=== PATIENT | female | born 1940 | race American Indian/Alaskan Native ===

== ENCOUNTER 2022-01-04 10:58 | Emergency (ER) | payer MEDICARE ==
[2022-01-04] MEDS ORDERED: ASPIRIN 81 MG TAB CHEW PO ONE (12:01)
--- NOTE | 2022-01-04 12:12 | Emergency Department Report ---
ED Chest Pain HPI - General Chief Complaint: Chest Pain Stated Complaint: CHEST PAIN Time Seen by Provider: 01/04/22 11:44 Source: EMS Mode of arrival: Stretcher Limitations: No Limitations - History of Present Illness Initial Comments: 81-year-old female brought in by EMS with chest pain who denied any chest pain or abdominal pain at this point. According to bedside nurse patient has history of schizo-affective disorder and likely dementia. Pt reports fullness after eating in the morning. She denies any chest pain or abdominal pain at this point. No other modifying or associated factors reported. - Related Data Home Medications Medication Instructions Recorded Confirmed Last Taken Sertraline [Zoloft] 100 mg PO QDAY 10/07/21 01/04/22 01/03/22 Atorvastatin [Lipitor] 40 mg PO QHS 10/10/21 01/04/22 01/03/22 Metoprolol Xl [Metoprolol 25 mg PO QDAY 10/10/21 01/04/22 01/03/22 SUCCINATE ER TAB] Previous Rx's Medication Instructions Recorded Last Taken Type Apixaban [Eliquis] 5 mg PO Q12HR #60 tablet 10/14/21 01/03/22 Rx Losartan [Cozaar] 25 mg PO QDAY #30 tablet 10/14/21 01/03/22 Rx amLODIPine 10 mg PO QDAY #30 tablet 10/14/21 01/03/22 Rx Allergies Allergy/AdvReac Type Severity Reaction Status Date / Time No Known Drug Allergies Allergy Unknown Verified 01/04/22 11:01 strawberry AdvReac Hives Verified 01/04/22 11:12 Heart Score - HEART Score History: Slightly suspicious EKG: Non-specific Age: > 65 Risk factors: No known risk factors Troponin: < normal limit HEART Score: 3 - EKG Read Time Time EKG Completed: 11:17 EKG Read Time: 11:25 - Critical Actions Critical Actions: 0-3 pts:0.9-1.7%risk of adverse cardiac event.Candidate for discharge ED Review of Systems ROS: Stated complaint: CHEST PAIN Other details as noted in HPI Comment: All other systems reviewed and negative Cardiovascular: chest pain ED Past Medical Hx - Past Medical History Hx Hypertension: Yes Hx Congestive Heart Failure: No Hx Diabetes: Yes Hx of Cancer: Yes (bilateral mastectomy) Hx Psychiatric Treatment: Yes (schizo) Hx Asthma: No Hx COPD: No Hx Dementia: Yes Additional medical history: lipidemia - Surgical History Past Surgical History?: Yes Hx Breast Surgery: Yes (bilateral) Additional Surgical History: This is obtained from old record review, not from the patient as she has altered mental status - Social History Smoking Status: Never Smoker - Medications Home Medications: Home Medications Medication Instructions Recorded Confirmed Last Taken Type Sertraline [Zoloft] 100 mg PO QDAY 10/07/21 01/04/22 01/03/22 History Atorvastatin [Lipitor] 40 mg PO QHS 10/10/21 01/04/22 01/03/22 History Metoprolol Xl [Metoprolol 25 mg PO QDAY 10/10/21 01/04/22 01/03/22 History SUCCINATE ER TAB] Apixaban [Eliquis] 5 mg PO Q12HR #60 tablet 10/14/21 01/04/22 01/03/22 Rx Losartan [Cozaar] 25 mg PO QDAY #30 tablet 10/14/21 01/04/22 01/03/22 Rx amLODIPine 10 mg PO QDAY #30 tablet 10/14/21 01/04/22 01/03/22 Rx ED Physical Exam - General Limitations: No Limitations General appearance: alert, in no apparent distress - Head Head exam: Present: normocephalic, normal inspection - Eye Eye exam: Present: normal appearance - ENT ENT exam: Present: normal exam, normal orophraynx - Neck Neck exam: Present: normal inspection, full ROM - Respiratory Respiratory exam: Present: normal lung sounds bilaterally. Absent: respiratory distress, wheezes, accessory muscle use - Cardiovascular Cardiovascular Exam: Present: regular rate, normal rhythm, normal heart sounds - GI/Abdominal GI/Abdominal exam: Present: soft. Absent: distended, tenderness - Extremities Exam Extremities exam: Present: normal inspection, normal capillary refill - Back Exam Back exam: Present: normal inspection - Neurological Exam Neurological exam: Present: alert, altered, other (oriented to self and place) - Psychiatric Psychiatric exam: Present: normal affect, normal mood - Skin Skin exam: Present: warm, intact, normal color ED Course Vital Signs 01/04/22 01/04/22 01/04/22 10:59 11:14 11:30 Temperature 99 F Pulse Rate 74 Respiratory Rate Blood Pressure Blood Pressure 120/67 [Left] O2 Sat by Pulse 98 99 100 Oximetry 01/04/22 01/04/22 01/04/22 11:31 12:01 12:31 Temperature Pulse Rate 71 73 73 Respiratory 13 10 L 18 Rate Blood Pressure 128/73 131/69 131/69 Blood Pressure [Left] O2 Sat by Pulse 99 98 100 Oximetry 01/04/22 01/04/22 13:01 13:31 Temperature Pulse Rate 78 71 Respiratory Rate Blood Pressure 126/71 126/71 Blood Pressure [Left] O2 Sat by Pulse 100 100 Oximetry - Reevaluation(s) Reevaluation #1: 01/04/22 12:14 pt initially sent in by EMS with chest pain which patient completely denied. She otherwise reports abdominal fullness after eaten. However considering that this patient is likely have dementia will go ahead and workup to rule out UT and KUB rule out constipation. Will continue to monitor. Reevaluation #2: 01/04/22 14:32 Patient's lab reviewed to be reassuring including cardiac enzymes and chemistry with no sign of infection. Chest x-ray and KUB only shows nonobstructive gas pattern with no acute findings. Considering that patient denies any chest pain or abdominal pain we will go ahead and discharge home with close contact with primary doctor. CHAVEZ score - Chavez Score Age > 65: (1) Yes Aspirin use within the Past 7 Days: (0) No 3 or more CAD Risk Factors: (1) Yes 2 or more Angina events in past 24 hrs: (0) No Known CAD with more than 50% Stenosis: (0) No Elevated Cardiac Markers: (0) No ST Deviation Greater than 0.5mm: (0) No (No ST changes on EKG but nonspecific T wave abnormality noted) CHAVEZ Score: 2 ED Medical Decision Making - Lab Data Result diagrams: 01/04/22 Unknown 01/04/22 Unknown Critical care attestation.: If time is entered above; I have spent that time in minutes in the direct care of this critically ill patient, excluding procedure time. ED Disposition Clinical Impression: Abdominal fullness, Non-cardiac chest pain Chest pain Qualifiers: Chest pain type: unspecified Qualified Code(s): R07.9 - Chest pain, unspecified Disposition: 01 HOME / SELF CARE / HOMELESS Is pt being admited?: No Does the pt Need Aspirin: No Condition: Stable Instructions: Nonspecific Chest Pain, Adult, Nonspecific Chest Pain, Adult, [id number] Additional Instructions: Please call and schedule follow-up with your primary doctor in the next 3 to 5 days for progress Increase your daily fluid to help your hydration Please do not hesitate to call or return to emergency room if your symptoms worsen Referrals: RICHARD BAKER MD [Primary Care Provider] - 3-5 Days Time of Disposition: 14:34
[2022-01-04 12:46] LABS: Basophils % (Auto) 0.6 % (0.0-1.8); Eosinophils # (Auto) 0.2 K/mm3 (0.0-0.4); Eosinophils % (Auto) 3.1 % (0.0-4.3); Hematocrit 32.9 % (30.3-42.9); Hemoglobin 10.9 gm/dl (10.1-14.3); Lymphocytes # (Auto) 1.7 K/mm3 (1.2-5.4); Lymphocytes % (Auto) 33.7 % (13.4-35.0); Mean Corpuscular HGB Conc 33 % (30-34); Mean Corpuscular Volume 96 fl (79-97); Monocytes # (Auto) 0.6 K/mm3 (0.0-0.8); Monocytes % (Auto) 12.6 % (0.0-7.3); Platelet Count 191 K/mm3 (140-440); Red Blood Count 3.43 M/mm3 (3.65-5.03); Red Cell Distribution Width 14.7 % (13.2-15.2)
[2022-01-04 12:55] LABS: INR 1.49 (0.87-1.13)
[2022-01-04 12:56] LABS: Partial Thromboplastin Time 36.6 Sec. (24.2-36.6)
[2022-01-04 13:03] LABS: Alanine Aminotransferase 11 units/L (7-56); Albumin 4.1 g/dL (3.9-5); BUN/Creatinine Ratio 29; Blood Urea Nitrogen 23 mg/dL (7-17); Calcium 9.3 mg/dL (8.4-10.2); Hemolysis Index 117
[2022-01-04 13:06] LABS: Bilirubin,Urine NEG (Negative); Blood,Urine NEG (Negative); Color,Urine Yellow (Yellow); Mucus,Urine FEW /HPF; Protein,Urine <15 mg/dL mg/dL (Negative); Urobilinogen,Urine < 2.0 mg/dL (<2.0)
--- NOTE | 2022-01-04 13:22 | XRay Report ---
XR chest 1V ap, XR abdomen 1V ap INDICATION / CLINICAL INFORMATION: chest pain. COMPARISON: 10/07/2021 FINDINGS: SUPPORT DEVICES: None. HEART / MEDIASTINUM: No significant abnormality. LUNGS / PLEURA: Left lower lobe rounded opacity which is thought to represent overlapping structures and the costochondral junction. Lungs are otherwise similar to prior exam from 10/07/2021 without acute airspace disease. Costophrenic sulci are sharp. No pneumothorax. ABDOMEN: Nonobstructive bowel gas pattern. No pneumoperitoneum. ADDITIONAL FINDINGS: No significant additional findings. IMPRESSION: 1. No acute findings. Opacity in the left lower lung zone is thought to represent overlapping structu res and the costochondral junction. 2. Nonobstructive bowel gas pattern. Signer Name: Shane Foster MD Signed: 01/04/2022 1:14 PM Workstation Name: [id number]
[2022-01-04 14:47] VITALS: BP 132/63
--- NOTE | 2022-01-05 10:48 | Electrocardiograph Report ---
[facility] Test Date: 2022-01-04 Test Time: 11:17:55 Pat Name: SUKHDEEP SHAH Department: Room: Gender: F [employer] Recruiter: POPPY BRAMBILAB: 1940 Requested By: SHERIE MALIK Order Number: [id number] Reading MD: Tres Romano Measurements Intervals [place] Rate: 72 P: 44 NV: 148 QRS: 6 QRSD: 77 T: 69 QT: 401 QTc: 440 Interpretive Statements Sinus rhythm Nonspecific T abnormalities, lateral leads Compared to ECG 10/10/2021 12:07:29 T-wave abnormality now present Atrial premature complex(es) no longer present Possible ischemia no longer present Electronically Signed On 01-05-2022 10:48:03 EDT by Tres Romano
== END 2022-01-04 17:13 | disposition home or self-care (01) ==
LOC: ED 10:58
DX: R14.0 Abdominal distension (gaseous) (principal); R07.9 Chest pain, unspecified; I10 Essential (primary) hypertension; E11.9 Type 2 diabetes mellitus without complications; Z91.018 Allergy to other foods
CPT/HCPCS: 36415; 71045; 74018; 80053; 81001; 83880; 84443; 84484; 85025; 85610; 85730; 93005; 99284

== ENCOUNTER 2022-01-12 13:51 | Inpatient (IN) | payer MEDICARE ==
[2022-01-12] MEDS ORDERED: HALOPERIDOL LACTATE 5 MG/1 ML INJ IM ONE (14:28)
[2022-01-12] MEDS ORDERED: SODIUM CHLORIDE 0.9% 1000 ML 1,000 ML IV ONE ×2 (14:29→15:58)
--- NOTE | 2022-01-12 14:32 | Emergency Department Report ---
<PAULA CORTEZ - Last Filed: 01/12/22 21:10> ED General Adult HPI - General Chief complaint: Medical Clearance Stated complaint: NOT EATING/TAKING MEDS Time Seen by Provider: 01/12/22 14:16 Source: EMS Mode of arrival: Stretcher Limitations: Altered Mental Status, Physical Limitation - History of Present Illness Initial comments: 81-year-old female the past medical history of dementia, pre-diabetes, hypertension, and schizophrenia presents to the hospital from personal snf for not taking meds and not eating. Patient is early oriented to self and not to year or place. She states that she has no intention of staying because she plans on flying out to [facility] even though she has not bought a plane ticket. Patient denies any pain and states she is not eating because she feels full with eating. As per medical record patient was here in January with complaints of chest pain and discharged after ED evaluation patient currently resides at a personal snf Patient's current medications include losartan 25 mg daily Eliquis 5 mg twice daily Sertraline 100 mg daily Metoprolol XL 25 mg daily Amlodipine 10 mg daily Atorvastatin 40 mg Severity scale (0 -10): 0 - Related Data Home Medications Medication Instructions Recorded Confirmed Last Taken Sertraline [Zoloft] 100 mg PO QDAY 10/07/21 01/04/22 01/03/22 Atorvastatin [Lipitor] 40 mg PO QHS 10/10/21 01/04/22 01/03/22 Metoprolol Xl [Metoprolol 25 mg PO QDAY 10/10/21 01/04/22 01/03/22 SUCCINATE ER TAB] Previous Rx's Medication Instructions Recorded Last Taken Type Apixaban [Eliquis] 5 mg PO Q12HR #60 tablet 10/14/21 01/03/22 Rx Losartan [Cozaar] 25 mg PO QDAY #30 tablet 10/14/21 01/03/22 Rx amLODIPine 10 mg PO QDAY #30 tablet 10/14/21 01/03/22 Rx Allergies Allergy/AdvReac Type Severity Reaction Status Date / Time No Known Drug Allergies Allergy Unknown Verified 01/12/22 14:01 strawberry AdvReac Hives Verified 01/12/22 14:01 ED Review of Systems Comment: All other systems reviewed and negative ED Past Medical Hx - Past Medical History Previous Medical History?: Yes Hx Hypertension: Yes Hx Congestive Heart Failure: No Hx Diabetes: Yes Hx Psychiatric Treatment: Yes (schizo) Hx Asthma: No Hx COPD: No Hx Dementia: Yes Additional medical history: lipidemia - Surgical History Hx Breast Surgery: Yes (bilateral) Additional Surgical History: This is obtained from old record review, not from the patient as she has altered mental status - Social History Smoking Status: Never Smoker - Medications Home Medications: Home Medications Medication Instructions Recorded Confirmed Last Taken Type Sertraline [Zoloft] 100 mg PO QDAY 10/07/21 01/04/22 01/03/22 History Atorvastatin [Lipitor] 40 mg PO QHS 10/10/21 01/04/22 01/03/22 History Metoprolol Xl [Metoprolol 25 mg PO QDAY 10/10/21 01/04/22 01/03/22 History SUCCINATE ER TAB] Apixaban [Eliquis] 5 mg PO Q12HR #60 tablet 10/14/21 01/04/22 01/03/22 Rx Losartan [Cozaar] 25 mg PO QDAY #30 tablet 10/14/21 01/04/22 01/03/22 Rx amLODIPine 10 mg PO QDAY #30 tablet 10/14/21 01/04/22 01/03/22 Rx ED Physical Exam - General Limitations: Altered Mental Status, Physical Limitation - Other Other exam information: General: No acute distress Head: Atraumatic Eyes: normal appearance Neck: Normal appearance, no midline tenderness Chest: Clear to auscultation bilaterally CV: Tachycardic regular rate Abdomen: Soft, normal bowel sounds, nontender, nondistended, no rebound or guarding Back: Normal inspection Extremity: Normal inspection, full range of motion Neuro: Alert O x 1, no facial asymmetry, speech clear, no gross motor sensory deficit Psych: Appropriate behavior Skin: No rash ED Course - Reevaluation(s) Reevaluation #1: 01/12/22 20:58 EKG still pending and re requested ED Medical Decision Making - Lab Data Result diagrams: 01/12/22 14:57 01/12/22 14:57 Lab Results 01/12/22 01/12/22 01/12/22 Range/Units 14:55 14:57 14:57 WBC 7.6 (4.5-11.0) K/mm3 RBC 4.36 (3.65-5.03) M/mm3 Hgb 13.5 (10.1-14.3) gm/dl Hct 43.6 H (30.3-42.9) % MCV 100 H (79-97) fl MCH 31 (28-32) pg MCHC 31 (30-34) % RDW 15.5 H (13.2-15.2) % Plt Count 216 (140-440) K/mm3 Lymph % (Auto) Floors Buffer Grundy % (Auto) Floors Buffer Eos % (Auto) Floors Buffer Baso % (Auto) Floors Buffer Lymph # (Auto) Floors Buffer Grundy # (Auto) Floors Buffer Eos # (Auto) Floors Buffer Baso # (Auto) Floors Buffer Seg Neutrophils % Floors Buffer Seg Neutrophils # Floors Buffer PT (12.2-14.9) Sec. INR (0.87-1.13) APTT (24.2-36.6) Sec. ABG pH (7.350-7.450) pH Units ABG pCO2 mm Hg ABG pO2 (80.0-90.0) mm Hg ABG HCO3 (20.0-26.0) mmol/L ABG O2 Saturation (95.0-99.0) % ABG O2 Content (0.0-44) ABG Base Excess (-2.0-3.0) mmol/L ABG Hemoglobin (12.0-16.0) gm/dl ABG Carboxyhemoglobin (0.0-5.0) % ABG Methemoglobin (0.0-1.5) % Oxyhemoglobin (95.0-99.0) % FiO2 % Sodium 147 H (137-145) mmol/L Potassium 5.2 H (3.6-5.0) mmol/L Chloride 106.7 (98-107) mmol/L Carbon Dioxide 14 L (22-30) mmol/L Anion Gap 32 mmol/L BUN 30 H (7-17) mg/dL Creatinine 1.0 (0.6-1.2) mg/dL Estimated GFR > 60 ml/min BUN/Creatinine Ratio 30 % Glucose 76 (65-100) mg/dL POC Glucose 65 L (70-105) mg/dL Calcium 10.4 H (8.4-10.2) mg/dL Magnesium 2.00 (1.7-2.3) mg/dL Total Bilirubin 0.70 (0.1-1.2) mg/dL AST 26 (5-40) units/L ALT 14 (7-56) units/L Alkaline Phosphatase 87 (35-129) units/L Total Creatine Kinase 159 H (30-135) units/L CK-MB (CK-2) 4.1 H (0.0-4.0) ng/mL CK-MB (CK-2) Rel Index 2.5 (0-4) Troponin T 0.012 (0.00-0.029) ng/mL Total Protein 8.0 (6.3-8.2) g/dL Albumin 4.3 (3.9-5) g/dL Albumin/Globulin Ratio 1.2 % Urine Color (Yellow) Urine Turbidity (Clear) Urine pH (5.0-7.0) Ur Specific [place] (1.003-1.030) Urine Protein (Negative) mg/dL Urine Glucose (UA) (Negative) mg/dL Urine Ketones (Negative) mg/dL Urine Blood (Negative) Urine Nitrite (Negative) Urine Bilirubin (Negative) Urine Urobilinogen (<2.0) mg/dL Ur Leukocyte Esterase (Negative) Urine WBC (Auto) (0.0-6.0) /HPF Urine RBC (Auto) (0.0-6.0) /HPF U Epithel Cells (Auto) (0-13.0) /HPF Urine Mucus /HPF Urine Opiates Screen Urine Methadone Screen Ur Barbiturates Screen Ur Phencyclidine Scrn Ur Amphetamines Screen U Benzodiazepines Scrn Urine Cocaine Screen U Marijuana (THC) Screen Drugs of Abuse Note Plasma/Serum Alcohol (0-0.07) % 01/12/22 01/12/22 01/12/22 Range/Units 14:57 14:57 18:54 WBC (4.5-11.0) K/mm3 RBC (3.65-5.03) M/mm3 Hgb (10.1-14.3) gm/dl Hct (30.3-42.9) % MCV (79-97) fl MCH (28-32) pg MCHC (30-34) % RDW (13.2-15.2) % Plt Count (140-440) K/mm3 Lymph % (Auto) Grundy % (Auto) Eos % (Auto) Baso % (Auto) Lymph # (Auto) Grundy # (Auto) Eos # (Auto) Baso # (Auto) Seg Neutrophils % Seg Neutrophils # PT 18.1 H (12.2-14.9) Sec. INR 1.33 H (0.87-1.13) APTT 33.2 (24.2-36.6) Sec. ABG pH (7.350-7.450) pH Units ABG pCO2 mm Hg ABG pO2 (80.0-90.0) mm Hg ABG HCO3 (20.0-26.0) mmol/L ABG O2 Saturation (95.0-99.0) % ABG O2 Content (0.0-44) ABG Base Excess (-2.0-3.0) mmol/L ABG Hemoglobin (12.0-16.0) gm/dl ABG Carboxyhemoglobin (0.0-5.0) % ABG Methemoglobin (0.0-1.5) % Oxyhemoglobin (95.0-99.0) % FiO2 % Sodium (137-145) mmol/L Potassium (3.6-5.0) mmol/L Chloride (98-107) mmol/L Carbon Dioxide (22-30) mmol/L Anion Gap mmol/L BUN (7-17) mg/dL Creatinine (0.6-1.2) mg/dL Estimated GFR ml/min BUN/Creatinine Ratio % Glucose (65-100) mg/dL POC Glucose (70-105) mg/dL Calcium (8.4-10.2) mg/dL Magnesium (1.7-2.3) mg/dL Total Bilirubin (0.1-1.2) mg/dL AST (5-40) units/L ALT (7-56) units/L Alkaline Phosphatase (35-129) units/L Total Creatine Kinase (30-135) units/L CK-MB (CK-2) (0.0-4.0) ng/mL CK-MB (CK-2) Rel Index (0-4) Troponin T (0.00-0.029) ng/mL Total Protein (6.3-8.2) g/dL Albumin (3.9-5) g/dL Albumin/Globulin Ratio % Urine Color Yellow (Yellow) Urine Turbidity Clear (Clear) Urine pH 5.0 (5.0-7.0) Ur Specific [place] 1.013 (1.003-1.030) Urine Protein <15 mg/dl (Negative) mg/dL Urine Glucose (UA) Neg (Negative) mg/dL Urine Ketones 20 (Negative) mg/dL Urine Blood Neg (Negative) Urine Nitrite Neg (Negative) Urine Bilirubin Neg (Negative) Urine Urobilinogen < 2.0 (<2.0) mg/dL Ur Leukocyte Esterase Neg (Negative) Urine WBC (Auto) 1.0 (0.0-6.0) /HPF Urine RBC (Auto) < 1.0 (0.0-6.0) /HPF U Epithel Cells (Auto) < 1.0 (0-13.0) /HPF Urine Mucus Few /HPF Urine Opiates Screen Urine Methadone Screen Ur Barbiturates Screen Ur Phencyclidine Scrn Ur Amphetamines Screen U Benzodiazepines Scrn Urine Cocaine Screen U Marijuana (THC) Screen Drugs of Abuse Note Plasma/Serum Alcohol < 0.01 (0-0.07) % 01/12/22 01/12/22 Range/Units 18:54 20:20 WBC (4.5-11.0) K/mm3 RBC (3.65-5.03) M/mm3 Hgb (10.1-14.3) gm/dl Hct (30.3-42.9) % MCV (79-97) fl MCH (28-32) pg MCHC (30-34) % RDW (13.2-15.2) % Plt Count (140-440) K/mm3 Lymph % (Auto) Grundy % (Auto) Eos % (Auto) Baso % (Auto) Lymph # (Auto) Grundy # (Auto) Eos # (Auto) Baso # (Auto) Seg Neutrophils % Seg Neutrophils # PT (12.2-14.9) Sec. INR (0.87-1.13) APTT (24.2-36.6) Sec. ABG pH 7.354 (7.350-7.450) pH Units ABG pCO2 40.8 mm Hg ABG pO2 138.8 H (80.0-90.0) mm Hg ABG HCO3 22.2 (20.0-26.0) mmol/L ABG O2 Saturation 98.6 (95.0-99.0) % ABG O2 Content 15.6 (0.0-44) ABG Base Excess -3.1 L (-2.0-3.0) mmol/L ABG Hemoglobin 11.3 L (12.0-16.0) gm/dl ABG Carboxyhemoglobin 1.3 (0.0-5.0) % ABG Methemoglobin 0.5 (0.0-1.5) % Oxyhemoglobin 96.8 (95.0-99.0) % FiO2 21 % Sodium (137-145) mmol/L Potassium (3.6-5.0) mmol/L Chloride (98-107) mmol/L Carbon Dioxide (22-30) mmol/L Anion Gap mmol/L BUN (7-17) mg/dL Creatinine (0.6-1.2) mg/dL Estimated GFR ml/min BUN/Creatinine Ratio % Glucose (65-100) mg/dL POC Glucose (70-105) mg/dL Calcium (8.4-10.2) mg/dL Magnesium (1.7-2.3) mg/dL Total Bilirubin (0.1-1.2) mg/dL AST (5-40) units/L ALT (7-56) units/L Alkaline Phosphatase (35-129) units/L Total Creatine Kinase (30-135) units/L CK-MB (CK-2) (0.0-4.0) ng/mL CK-MB (CK-2) Rel Index (0-4) Troponin T (0.00-0.029) ng/mL Total Protein (6.3-8.2) g/dL Albumin (3.9-5) g/dL Albumin/Globulin Ratio % Urine Color (Yellow) Urine Turbidity (Clear) Urine pH (5.0-7.0) Ur Specific [place] (1.003-1.030) Urine Protein (Negative) mg/dL Urine Glucose (UA) (Negative) mg/dL Urine Ketones (Negative) mg/dL Urine Blood (Negative) Urine Nitrite (Negative) Urine Bilirubin (Negative) Urine Urobilinogen (<2.0) mg/dL Ur Leukocyte Esterase (Negative) Urine WBC (Auto) (0.0-6.0) /HPF Urine RBC (Auto) (0.0-6.0) /HPF U Epithel Cells (Auto) (0-13.0) /HPF Urine Mucus /HPF Urine Opiates Screen Presumptive negative Urine Methadone Screen Presumptive negative Ur Barbiturates Screen Presumptive negative Ur Phencyclidine Scrn Presumptive negative Ur Amphetamines Screen Presumptive negative U Benzodiazepines Scrn Presumptive negative Urine Cocaine Screen Presumptive negative U Marijuana (THC) Screen Presumptive negative Drugs of Abuse Note Disclamer Plasma/Serum Alcohol (0-0.07) % - EKG Data -: EKG Interpreted by Me (possible aflutter however a lot of artifact on ekg) - Radiology Data Radiology results: report reviewed XR chest 1V ap INDICATION / CLINICAL INFORMATION: dementia, decreased po intake COMPARISON: 01/04/2022 FINDINGS: SUPPORT DEVICES: None. HEART / MEDIASTINUM: No significant abnormality. LUNGS / PLEURA: Interlobular septal and peribronchial thickening. Costophrenic sulci are sharp. No pneumothorax. ADDITIONAL FINDINGS: No significant additional findings. IMPRESSION: 1. Mild interstitial edema. - Medical Decision Making 81-year-old female with a past medical history of dementia, schizophrenia, multiple chronic medical conditions presents to the hospital with reported decreased p.o. intake. Labs suggestive of dehydration. She also has an anion gap acidosis. Patient did receive IV fluids in the ED. X-ray shows mild pulmonary edema. BNP ordered. ABG performed without any acid-base disturbance identified and patient had adequate oxygenation on room Patient required sedation with Haldol and Ativan in the ED for cooperation with treatment s/o to Dr Rome to admit ekg ? afflutter, pt does take eliquis for unknown reason Critical Care Time: No ED Disposition Clinical Impression: Acute hypernatremia, Dehydration, Acute renal failure, Agitation Disposition: 09 ADMITTED INPATIENT Is pt being admited?: Yes Condition: Stable Referrals: PRIMARY CARE, [Primary Care Provider] - 3-5 Days <ROBB ROME - Last Filed: 01/12/22 22:52> ED Review of Systems ROS: Stated complaint: NOT EATING/TAKING MEDS Other details as noted in HPI ED Course Vital Signs 01/12/22 01/12/22 01/12/22 13:57 14:27 14:34 Temperature 98.4 F 99.1 F Pulse Rate 115 H 109 H 108 H Respiratory 16 16 Rate Blood Pressure 120/68 Blood Pressure 136/79 120/68 [Left] O2 Sat by Pulse 95 100 Oximetry 01/12/22 01/12/22 01/12/22 15:01 15:16 15:30 Temperature Pulse Rate Respiratory Rate Blood Pressure Blood Pressure [Left] O2 Sat by Pulse 94 96 96 Oximetry 01/12/22 01/12/22 01/12/22 15:46 16:00 16:16 Temperature Pulse Rate Respiratory Rate Blood Pressure Blood Pressure [Left] O2 Sat by Pulse 97 95 97 Oximetry 01/12/22 01/12/22 01/12/22 16:32 16:46 17:00 Temperature Pulse Rate Respiratory Rate Blood Pressure Blood Pressure [Left] O2 Sat by Pulse 86 100 94 Oximetry 01/12/22 01/12/22 01/12/22 17:16 17:30 17:46 Temperature Pulse Rate Respiratory Rate Blood Pressure Blood Pressure [Left] O2 Sat by Pulse 93 92 93 Oximetry 01/12/22 01/12/22 01/12/22 18:00 18:16 18:30 Temperature Pulse Rate Respiratory Rate Blood Pressure Blood Pressure [Left] O2 Sat by Pulse 92 94 93 Oximetry 01/12/22 01/12/22 01/12/22 18:46 19:02 19:16 Temperature Pulse Rate Respiratory Rate Blood Pressure 134/67 134/67 Blood Pressure [Left] O2 Sat by Pulse 53 L 97 96 Oximetry 01/12/22 01/12/22 01/12/22 19:30 19:46 20:00 Temperature Pulse Rate Respiratory Rate Blood Pressure 127/73 127/73 122/67 Blood Pressure [Left] O2 Sat by Pulse 80 L 99 98 Oximetry 01/12/22 01/12/22 01/12/22 20:16 20:30 20:46 Temperature Pulse Rate Respiratory Rate Blood Pressure 122/67 147/82 147/82 Blood Pressure [Left] O2 Sat by Pulse 98 90 79 L Oximetry 01/12/22 01/12/22 01/12/22 21:02 21:16 21:32 Temperature Pulse Rate Respiratory Rate Blood Pressure 141/66 141/66 137/64 Blood Pressure [Left] O2 Sat by Pulse 92 98 82 L Oximetry 01/12/22 01/12/22 01/12/22 21:45 22:00 22:17 Temperature Pulse Rate Respiratory Rate Blood Pressure 137/64 152/83 152/83 Blood Pressure [Left] O2 Sat by Pulse 79 L 93 92 Oximetry 01/12/22 22:27 Temperature 98.3 F Pulse Rate 77 Respiratory Rate Blood Pressure Blood Pressure [Left] O2 Sat by Pulse Oximetry ED Medical Decision Making - Lab Data Result diagrams: 01/12/22 14:57 01/12/22 14:57 - Medical Decision Making Patient became more agitated. Patient received Geodon 10 mg IM. I discussed the patient with Dr. Navas, he agreed to admit the patient to medical service for further management. Critical care attestation.: If time is entered above; I have spent that time in minutes in the direct care of this critically ill patient, excluding procedure time.
--- NOTE | 2022-01-12 15:11 | XRay Report ---
XR chest 1V ap INDICATION / CLINICAL INFORMATION: dementia, decreased po intake COMPARISON: 01/04/2022 FINDINGS: SUPPORT DEVICES: None. HEART / MEDIASTINUM: No significant abnormality. LUNGS / PLEURA: Interlobular septal and peribronchial thickening. Costophrenic sulci are sharp. No p neumothorax. ADDITIONAL FINDINGS: No significant additional findings. IMPRESSION: 1. Mild interstitial edema. Signer Name: Shane Foster MD Signed: 01/12/2022 3:07 PM Workstation Name: [id number]
[2022-01-12 15:47] LABS: Creatine Kinase MB 4.1 ng/mL (0.0-4.0)
[2022-01-12 15:48] LABS: Alanine Aminotransferase 14 units/L (7-56); Albumin 4.3 g/dL (3.9-5); BUN/Creatinine Ratio 30; Blood Urea Nitrogen 30 mg/dL (7-17); Calcium 10.4 mg/dL (8.4-10.2); Hemolysis Index 122
[2022-01-12 15:50] LABS: INR 1.33 (0.87-1.13)
[2022-01-12 15:51] LABS: Partial Thromboplastin Time 33.2 Sec. (24.2-36.6)
[2022-01-12 16:06] LABS: Hematocrit 43.6 % (30.3-42.9); Hemoglobin 13.5 gm/dl (10.1-14.3); Mean Corpuscular HGB Conc 31 % (30-34); Mean Corpuscular Volume 100 fl (79-97); Platelet Count 216 K/mm3 (140-440); Red Blood Count 4.36 M/mm3 (3.65-5.03); Red Cell Distribution Width 15.5 % (13.2-15.2)
[2022-01-12] MEDS ORDERED: LORazepam 2 MG/ML VIAL IV ONE ×2 (16:43→23:50)
[2022-01-12 19:17] LABS: Bilirubin,Urine NEG (Negative); Blood,Urine NEG (Negative); Color,Urine Yellow (Yellow); Mucus,Urine FEW /HPF; Protein,Urine <15 mg/dL mg/dL (Negative); RBC,Urine < 1.0 /HPF (0.0-6.0); Urobilinogen,Urine < 2.0 mg/dL (<2.0)
[2022-01-12 19:25] LABS: Amphetamine Screen,Urine PRESUMPTIVE NEGATIVE; Benzodiazepines Screen,Urine PRESUMPTIVE NEGATIVE; Cannabinoid Screen,Urine PRESUMPTIVE NEGATIVE; Cocaine Screen,Urine PRESUMPTIVE NEGATIVE; Methadone Screen,Urine PRESUMPTIVE NEGATIVE; Opiate Screen,Urine PRESUMPTIVE NEGATIVE
[2022-01-12 20:28] LABS: ABG Base Excess -3.1 mmol/L (-2.0-3.0); ABG HCO3 22.2 mmol/L (20.0-26.0); ABG Methemoglobin 0.5 % (0.0-1.5); ABG Oxygen Saturation 98.6 % (95.0-99.0); ABG PCO2 40.8 mm Hg; ABG PH 7.354 pH Units (7.350-7.450); ABG PO2 138.8 mm Hg (80.0-90.0)
[2022-01-12] MEDS ORDERED: D5W/0.9% NACL 1,000 ML IV SCH (21:00)
[2022-01-12] MEDS ORDERED: D5W/0.45% NACL 1,000 ML IV SCH (21:00)
[2022-01-12] MEDS ORDERED: ZIPRASIDONE MESYLATE 20 MG VIAL IM ONE (21:44)
[2022-01-12] MEDS ORDERED: SODIUM CHLORIDE 0.9% 1000 ML 1,000 ML ONE (23:09)
[2022-01-12] MEDS ORDERED: LORazepam 2 MG/ML VIAL ONE (23:44)
[2022-01-12] MEDS ORDERED: MORPHINE 4 MG/1 ML INJ IV PRN (23:46)
[2022-01-12] MEDS ORDERED: ONDANSETRON 4 MG/2 ML INJ IV PRN (23:46)
[2022-01-12] MEDS ORDERED: ACETAMINOPHEN 325 MG TAB PO PRN (23:46)
[2022-01-12] MEDS ORDERED: MAGNESIUM HYDROXIDE (MOM) ORAL LIQD UDC PO PRN (23:46)
[2022-01-12] MEDS ORDERED: MORPHINE 2 MG/1 ML INJ IV PRN (23:46)
[2022-01-12] MEDS ORDERED: DEXTROSE 50% IN WATER (25GM) 50 ML SYRINGE IV PRN (23:46)
--- NOTE | 2022-01-13 00:01 | History and Physical Report ---
History of Present Illness Date of examination: 01/12/22 Date of admission: 01/12/2022 Chief complaint: Decreased Oral Intake History of present illness: 81-year-old female resident of the past Can hold with significant past medical history of dementia, hypertension, schizophrenia and prediabetes brought into the emergency room today for evaluation because of decreased oral intake and not taking her medications. Patient was found to be altered. Upon arrival in the emergency room patient was found to be quite confused. Most of the history was taken from the ER staff as patient is unable to provide any information. Work-up in the emergency room today, lab reveals hypernatremia of 147, potassium of 5.2. Chest x-ray and urinalysis were unremarkable. Urine drug screen was unremarkable. Patient is being admitted with dehydration. Past History Past Medical History: diabetes, hypertension, hyperlipidemia, other (Dementia, schizophrenia ) Past Surgical History: Other (Bilateral breast surgery) Social history: no significant social history Family history: no significant family history Medications and Allergies Allergies Allergy/AdvReac Type Severity Reaction Status Date / Time No Known Drug Allergies Allergy Unknown Verified 01/12/22 14:01 strawberry AdvReac Hives Verified 01/12/22 14:01 Home Medications Medication Instructions Recorded Confirmed Last Taken Type Sertraline [Zoloft] 100 mg PO QDAY 10/07/21 01/04/22 01/03/22 History Atorvastatin [Lipitor] 40 mg PO QHS 10/10/21 01/04/22 01/03/22 History Metoprolol Xl [Metoprolol 25 mg PO QDAY 10/10/21 01/04/22 01/03/22 History SUCCINATE ER TAB] Apixaban [Eliquis] 5 mg PO Q12HR #60 tablet 10/14/21 01/04/22 01/03/22 Rx Losartan [Cozaar] 25 mg PO QDAY #30 tablet 10/14/21 01/04/22 01/03/22 Rx amLODIPine 10 mg PO QDAY #30 tablet 10/14/21 01/04/22 01/03/22 Rx Active Meds: Active Medications Acetaminophen (Acetaminophen 325 Mg Tab) 650 mg PO Q4H PRN PRN Reason: Pain MILD(1-3)/Fever >100.5/WINTER Dextrose (Dextrose 50% In Water (25gm) 50 Ml Syringe) 50 ml IV Q30MIN PRN; Protocol PRN Reason: Hypoglycemia Dextrose (Dextrose 50% In Water (25gm) 50 Ml Syringe) 50 ml IV Q30MIN PRN; Protocol PRN Reason: Hypoglycemia Dextrose/Sodium Chloride (D5/0.45ns) 1,000 mls @ 200 mls/hr IV DIRECT TODD Sodium Chloride (Nacl 0.9% 1000 Ml) 1,000 mls @ 125 mls/hr IV DIRECT TODD Insulin Human Lispro (Insulin Lispro 100 Unit/Ml) 0 unit SUB-Q ACHS TODD; Protocol Magnesium Hydroxide (Magnesium Hydroxide (Mom) Oral Liqd Udc) 30 ml PO Q4H PRN PRN Reason: Constipation Morphine Sulfate (Morphine 4 Mg/1 Ml Inj) 4 mg IV Q4H PRN PRN Reason: Pain , Severe (7-10) Morphine Sulfate (Morphine 2 Mg/1 Ml Inj) 2 mg IV Q4H PRN PRN Reason: Pain, Moderate (4-6) Ondansetron HCl (Ondansetron 4 Mg/2 Ml Inj) 4 mg IV Q8H PRN PRN Reason: Nausea And Vomiting Sodium Chloride (Sodium Chloride 0.9% 10 Ml Flush Syringe) 10 ml IV BID TODD Sodium Chloride (Sodium Chloride 0.9% 10 Ml Flush Syringe) 10 ml IV PRN PRN PRN Reason: LINE FLUSH Review of Systems ROS unobtainable: due to mental status Exam - Constitutional Vitals: Temp Pulse Resp BP Pulse Ox 98.3 F 77 16 152/83 92 01/12/22 22:27 01/12/22 22:27 01/12/22 14:27 01/12/22 22:17 01/12/22 22:17 General appearance: Present: no acute distress (Is a), well-nourished, other (Patient is altered, very dry oral mucosa) - EENT Eyes: Present: PERRL, EOM intact. Absent: scleral icterus ENT: hearing intact, clear oral mucosa, dentition normal - Neck Neck: Present: supple, normal ROM - Respiratory Respiratory effort: normal Respiratory: bilateral: CTA - Cardiovascular Rhythm: regular Heart Sounds: Present: S1 & S2. Absent: gallop, systolic murmur, diastolic murmur, rub, click - Extremities Extremities: no ischemia, pulses intact, pulses symmetrical, No edema, normal temperature, normal color, Full ROM Peripheral Pulses: within normal limits - Abdominal General gastrointestinal: Present: soft, non-tender, non-distended, normal bowel sounds. Absent: mass - Integumentary Integumentary: Present: clear, warm, dry, decreased turgor. Absent: rash - Musculoskeletal Musculoskeletal: strength equal bilaterally - Psychiatric Psychiatric: cooperative - Neurologic Neurologic: other (Altered,Unresponsive.) HEART Score - HEART Score Troponin: Troponin T 0.012 ng/mL (0.00-0.029) 01/12/22 14:57 Results - Labs CBC & Chem 7: 01/12/22 14:57 01/12/22 14:57 Labs: Abnormal lab results 01/12/22 01/12/22 01/12/22 Range/Units 14:55 14:57 14:57 Hct 43.6 H (30.3-42.9) % MCV 100 H (79-97) fl RDW 15.5 H (13.2-15.2) % PT (12.2-14.9) Sec. INR (0.87-1.13) ABG pO2 (80.0-90.0) mm Hg ABG Base Excess (-2.0-3.0) mmol/L ABG Hemoglobin (12.0-16.0) gm/dl Sodium 147 H (137-145) mmol/L Potassium 5.2 H (3.6-5.0) mmol/L Carbon Dioxide 14 L (22-30) mmol/L BUN 30 H (7-17) mg/dL POC Glucose 65 L (70-105) mg/dL Calcium 10.4 H (8.4-10.2) mg/dL Total Creatine Kinase 159 H (30-135) units/L CK-MB (CK-2) 4.1 H (0.0-4.0) ng/mL 01/12/22 01/12/22 Range/Units 14:57 20:20 Hct (30.3-42.9) % MCV (79-97) fl RDW (13.2-15.2) % PT 18.1 H (12.2-14.9) Sec. INR 1.33 H (0.87-1.13) ABG pO2 138.8 H (80.0-90.0) mm Hg ABG Base Excess -3.1 L (-2.0-3.0) mmol/L ABG Hemoglobin 11.3 L (12.0-16.0) gm/dl Sodium (137-145) mmol/L Potassium (3.6-5.0) mmol/L Carbon Dioxide (22-30) mmol/L BUN (7-17) mg/dL POC Glucose (70-105) mg/dL Calcium (8.4-10.2) mg/dL Total Creatine Kinase (30-135) units/L CK-MB (CK-2) (0.0-4.0) ng/mL Assessment and Plan - Patient Problems (1) Altered mental status Current Visit: No Status: Acute Plan to address problem: We will monitor mental status. Patient has baseline history of dementia. (2) Acute hypernatremia Current Visit: Yes Status: Acute Plan to address problem: Secondary to dehydration. Will continue IV fluid and monitor chemistry. (3) Dehydration Current Visit: Yes Status: Acute Plan to address problem: Patient has had decreased oral intake. Will continue IV fluid and monitor chemistry. (4) DVT prophylaxis Current Visit: No Status: Acute Plan to address problem: Patient placed on subcutaneous heparin (5) Full code status Current Visit: No Status: Acute Plan to address problem: Patient is full code.
[2022-01-13 05:40] LABS: BUN/Creatinine Ratio 30; Blood Urea Nitrogen 24 mg/dL (7-17); Calcium 8.9 mg/dL (8.4-10.2); Hemolysis Index 3
[2022-01-13] MEDS: INSULIN LISPRO 100 UNIT/ML SUB-Q SCH ×4 (07:47→22:12)
--- NOTE | 2022-01-13 13:08 | Progress Note ---
Assessment and Plan Assessment and plan: #Schizophrenia -patient follows with Psychiatry outpatient -patient refusal to eat and take medications -was taking zoloft prior to last hospitalization -will restart zoloft -Psychiatry consulted for evaluation, assistance appreciated #Volume depletion -secondary to anorexia -continue IVFs -patient encouraged to eat #Subsegmental pulmonary embolism without acute cor pulmonale -stable -will restart eliquis at home dose #Hypertension -continue amlodipine and losartan at home doses #Advance care planning -Disease education, care plan, diagnosis, prognosis discussed with next of kin. Family understands and acknowledges current plan. -Time: +30 minutes #Discharge planning -Patient [facility]. Her medical decision maker is Ingrid Peñaloza (Granddaughter). Plan to discharge back to personal penitentiary once clinically stable. History Interval history: Patient agitated overnight had to be restrained. This morning she is alert and oriented and has no complaints. Hospitalist Physical - Physical exam Narrative exam: GENERAL: Well-developed well-nourished. In no acute distress. HEENT: NC @ 1 lpm NECK: Supple. CHEST/LUNGS: CTAB. HEART/CARDIOVASCULAR: RRR. No murmur, rubs or gallops appreciated. ABDOMEN: +BS. NT/ND. SKIN: Dry skin NEURO: No focal motor deficit. Patient does not follow commands. MUSCULOSKELETAL: No joint effusion EXTREMITIES: No cyanosis, clubbing or edema. PSYCH: Alert to person and place. - Constitutional Vitals: Temp Pulse Resp BP Pulse Ox 98.7 F 70 16 156/87 100 01/13/22 07:48 01/13/22 07:48 01/13/22 07:48 01/13/22 07:48 01/13/22 07:48 General appearance: Present: no acute distress (Is a), well-nourished, other (Patient is altered, very dry oral mucosa) HEART Score - HEART Score Troponin: Troponin T 0.012 ng/mL (0.00-0.029) 01/12/22 14:57 Results - Labs CBC & Chem 7: 01/12/22 14:57 01/13/22 05:08 Labs: Laboratory Last Values WBC 7.6 K/mm3 (4.5-11.0) 01/12/22 14:57 RBC 4.36 M/mm3 (3.65-5.03) 01/12/22 14:57 Hgb 13.5 gm/dl (10.1-14.3) 01/12/22 14:57 Hct 43.6 % (30.3-42.9) H 01/12/22 14:57 MCV 100 fl (79-97) H 01/12/22 14:57 MCH 31 pg (28-32) 01/12/22 14:57 MCHC 31 % (30-34) 01/12/22 14:57 RDW 15.5 % (13.2-15.2) H 01/12/22 14:57 Plt Count 216 K/mm3 (140-440) 01/12/22 14:57 Lymph % (Auto) [employer] 01/12/22 14:57 [place] % (Auto) [employer] 01/12/22 14:57 Eos % (Auto) [employer] 01/12/22 14:57 Baso % (Auto) [employer] 01/12/22 14:57 Lymph # (Auto) [employer] 01/12/22 14:57 [place] # (Auto) [employer] 01/12/22 14:57 Eos # (Auto) [employer] 01/12/22 14:57 Baso # (Auto) [employer] 01/12/22 14:57 Seg Neutrophils % [employer] 01/12/22 14:57 Seg Neutrophils # [employer] 01/12/22 14:57 PT 18.1 Sec. (12.2-14.9) H 01/12/22 14:57 INR 1.33 (0.87-1.13) H 01/12/22 14:57 APTT 33.2 Sec. (24.2-36.6) 01/12/22 14:57 ABG pH 7.354 pH Units (7.350-7.450) 01/12/22 20:20 ABG pCO2 40.8 mm Hg 01/12/22 20:20 ABG pO2 138.8 mm Hg (80.0-90.0) H 01/12/22 20:20 ABG HCO3 22.2 mmol/L (20.0-26.0) 01/12/22 20:20 ABG O2 Saturation 98.6 % (95.0-99.0) 01/12/22 20:20 ABG O2 Content 15.6 (0.0-44) 01/12/22 20:20 ABG Base Excess -3.1 mmol/L (-2.0-3.0) L 01/12/22 20:20 ABG Hemoglobin 11.3 gm/dl (12.0-16.0) L 01/12/22 20:20 ABG Carboxyhemoglobin 1.3 % (0.0-5.0) 01/12/22 20:20 ABG Methemoglobin 0.5 % (0.0-1.5) 01/12/22 20:20 Oxyhemoglobin 96.8 % (95.0-99.0) 01/12/22 20:20 FiO2 21 % 01/12/22 20:20 Sodium 148 mmol/L (137-145) H 01/13/22 05:08 Potassium 3.9 mmol/L (3.6-5.0) D 01/13/22 05:08 Chloride 114.2 mmol/L (98-107) H 01/13/22 05:08 Carbon Dioxide 26 mmol/L (22-30) D 01/13/22 05:08 Anion Gap 12 mmol/L 01/13/22 05:08 BUN 24 mg/dL (7-17) H 01/13/22 05:08 Creatinine 0.8 mg/dL (0.6-1.2) 01/13/22 05:08 Estimated GFR > 60 ml/min 01/13/22 05:08 BUN/Creatinine Ratio 30 % 01/13/22 05:08 Glucose 160 mg/dL (65-100) H 01/13/22 05:08 POC Glucose 104 mg/dL (70-105) 01/13/22 12:09 Calcium 8.9 mg/dL (8.4-10.2) 01/13/22 05:08 Magnesium 2.00 mg/dL (1.7-2.3) 01/12/22 14:57 Total Bilirubin 0.70 mg/dL (0.1-1.2) 01/12/22 14:57 AST 26 units/L (5-40) 01/12/22 14:57 ALT 14 units/L (7-56) 01/12/22 14:57 Alkaline Phosphatase 87 units/L (35-129) 01/12/22 14:57 Total Creatine Kinase 159 units/L (30-135) H 01/12/22 14:57 CK-MB (CK-2) 4.1 ng/mL (0.0-4.0) H 01/12/22 14:57 CK-MB (CK-2) Rel Index 2.5 (0-4) 01/12/22 14:57 Troponin T 0.012 ng/mL (0.00-0.029) 01/12/22 14:57 NT-Pro-B Natriuret Pep 274.7 pg/mL (0-900) 01/12/22 14:57 Total Protein 8.0 g/dL (6.3-8.2) 01/12/22 14:57 Albumin 4.3 g/dL (3.9-5) 01/12/22 14:57 Albumin/Globulin Ratio 1.2 % 01/12/22 14:57 Urine Color Yellow (Yellow) 01/12/22 18:54 Urine Turbidity Clear (Clear) 01/12/22 18:54 Urine pH 5.0 (5.0-7.0) 01/12/22 18:54 Ur Specific [place] 1.013 (1.003-1.030) 01/12/22 18:54 Urine Protein <15 mg/dl mg/dL (Negative) 01/12/22 18:54 Urine Glucose (UA) Neg mg/dL (Negative) 01/12/22 18:54 Urine Ketones 20 mg/dL (Negative) 01/12/22 18:54 Urine Blood Neg (Negative) 01/12/22 18:54 Urine Nitrite Neg (Negative) 01/12/22 18:54 Urine Bilirubin Neg (Negative) 01/12/22 18:54 Urine Urobilinogen < 2.0 mg/dL (<2.0) 01/12/22 18:54 Ur Leukocyte Esterase Neg (Negative) 01/12/22 18:54 Urine WBC (Auto) 1.0 /HPF (0.0-6.0) 01/12/22 18:54 Urine RBC (Auto) < 1.0 /HPF (0.0-6.0) 01/12/22 18:54 U Epithel Cells (Auto) < 1.0 /HPF (0-13.0) 01/12/22 18:54 Urine Mucus Few /HPF 01/12/22 18:54 Urine Opiates Screen Presumptive negative 01/12/22 18:54 Urine Methadone Screen Presumptive negative 01/12/22 18:54 Ur Barbiturates Screen Presumptive negative 01/12/22 18:54 Ur Phencyclidine Scrn Presumptive negative 01/12/22 18:54 Ur Amphetamines Screen Presumptive negative 01/12/22 18:54 U Benzodiazepines Scrn Presumptive negative 01/12/22 18:54 Urine Cocaine Screen Presumptive negative 01/12/22 18:54 U Marijuana (THC) Screen Presumptive negative 01/12/22 18:54 Drugs of Abuse Note Disclamer 01/12/22 18:54 Plasma/Serum Alcohol < 0.01 % (0-0.07) 01/12/22 14:57 Pleitez/IV: Voiding Method Incontinent Active Medications - Current Medications Current Medications: Generic Name Dose Route Start Last Admin Trade Name Freq PRN Reason Stop Dose Admin Acetaminophen 650 mg 01/12/22 23:46 Acetaminophen 325 Mg Tab PO Q4H PRN Pain MILD(1-3)/Fever >100.5/WINTER Dextrose 50 ml 01/12/22 23:46 Dextrose 50% In Water (25gm) 50 Ml Syringe IV Q30MIN PRN Hypoglycemia Protocol Heparin Sodium (Porcine) 5,000 unit 01/13/22 14:00 Heparin 5,000 Unit/1 Ml Vial SUB-Q Q8HR [facility] Sodium Chloride 1,000 mls @ 125 mls/hr 01/12/22 23:45 Nacl 0.9% 1000 Ml IV DIRECT [facility] Insulin Human Lispro 0 unit 01/13/22 07:30 Insulin Lispro 100 Unit/Ml SUB-Q ACHS [facility] Protocol Magnesium Hydroxide 30 ml 01/12/22 23:46 Magnesium Hydroxide (Mom) Oral Liqd Udc PO Q4H PRN Constipation Morphine Sulfate 4 mg 01/12/22 23:46 Morphine 4 Mg/1 Ml Inj IV Q4H PRN Pain , Severe (7-10) Morphine Sulfate 2 mg 01/12/22 23:46 Morphine 2 Mg/1 Ml Inj IV Q4H PRN Pain, Moderate (4-6) Ondansetron HCl 4 mg 01/12/22 23:46 Ondansetron 4 Mg/2 Ml Inj IV Q8H PRN Nausea And Vomiting Sodium Chloride 10 ml 01/13/22 10:00 Sodium Chloride 0.9% 10 Ml Flush Syringe IV BID TODD Sodium Chloride 10 ml 01/12/22 23:46 Sodium Chloride 0.9% 10 Ml Flush Syringe IV PRN PRN LINE FLUSH Nutrition/Malnutrition Assess - Dietary Evaluation Nutrition/Malnutrition Findings: Nutrition Notes Start: 01/13/22 10:53 Freq: Status: Active Protocol: Document 01/13/22 10:53 JERRY (Rec: 01/13/22 11:00 JERRY [email or web address]) Nutrition Notes Need for Assessment generated from: MD Order,Education Initial or Follow up Assessment Current Diagnosis Diabetes,Hypertension, Hyperlipidemia Other Pertinent Diagnosis Decreased oral intake, Dehydration, Dementia, Schizophrenia Current Diet Cardiac/Consistent CHO Labs/Tests Na 148 BUN 24 BG 160 Pertinent Medications NS at 125ml/hr Height 5 ft 3 in Weight 57.[address] [place] Body Weight (kg) 52.27 BMI 22.4 Intake Prior to Admission Poor Weight Status Appropriate Subjective/Other Information RD consulted for diet education. Pt not appropriate for diet education. She was admitted sec to decreased oral intake and medication non- compliance; pt confused upon admission. Burn Absent Trauma Absent Minimum of two criteria No #1 Nutrition Diagnosis Predicted suboptimal energy intake Etiology advanced age, dementia As Evidenced by Signs and Symptoms pt admitted with decreased oral intake Is patient on ventilator? No Is Patient Ambulatory and/or Out of Bed Yes REE-([facility]-ambulatory/OOB) [ 1305.369 [id number]] Calculation Used for Recommendations [facility] Additional Notes Pro needs 1-1.2g/k-69g/ day Fluid needs 1ml/kcal Nutrition Intervention Change Diet Order: Continue current diet order as tolerated Add Supplement/Snack (indicate name/kcal Glucerna BID (vanilla/ /protein ) chocolate) Provides kCal: 440 Provides Protein (gm) 20 Goal #1 PO intake of meals plus ONS to meet at least 75% energy and pro needs Anticipated Discharge Needs: Continue ONS 1-2 times daily if PO intake remains suboptimal Follow-Up By: 01/16/22 Additional Comments F/U: intakes (meals/ONS)
[2022-01-13] MEDS ORDERED: HEPARIN 5,000 UNIT/1 ML VIAL SUB-Q SCH (14:00)
[2022-01-13] MEDS: amLODIPine 10 MG TAB PO SCH (14:55)
[2022-01-13] MEDS: LOSARTAN 25 MG TAB PO SCH (15:52)
[2022-01-13] MEDS: SERTRALINE 100 MG TAB PO SCH (15:53)
[2022-01-13] MEDS: METOPROLOL SUCCINATE XL 25 MG TAB PO SCH (15:56)
[2022-01-13] MEDS ORDERED: NON-FORMULARY EACH (Apixaban 5 MG Tablet) PO SCH (22:00)
[2022-01-13] MEDS: APIXABAN 5 MG TAB PO SCH (22:01)
[2022-01-13 23:55] LABS: Hematocrit 39.8 % (30.3-42.9); Hemoglobin 12.8 gm/dl (10.1-14.3); Mean Corpuscular HGB Conc 32 % (30-34); Mean Corpuscular Volume 97 fl (79-97); Platelet Count 210 K/mm3 (140-440); Red Blood Count 4.11 M/mm3 (3.65-5.03); Red Cell Distribution Width 14.7 % (13.2-15.2)
[2022-01-14 00:07] LABS: INR 1.02 (0.87-1.13)
[2022-01-14 00:08] LABS: Partial Thromboplastin Time 25.8 Sec. (24.2-36.6)
[2022-01-14] MEDS: INSULIN LISPRO 100 UNIT/ML SUB-Q SCH ×4 (10:17→21:21)
[2022-01-14] MEDS: METOPROLOL SUCCINATE XL 25 MG TAB PO SCH (10:17)
[2022-01-14] MEDS: amLODIPine 10 MG TAB PO SCH (10:17)
[2022-01-14] MEDS: APIXABAN 5 MG TAB PO SCH ×2 (10:17→22:39)
[2022-01-14] MEDS: LOSARTAN 25 MG TAB PO SCH (10:17)
[2022-01-14] MEDS: SERTRALINE 100 MG TAB PO SCH (10:18)
--- NOTE | 2022-01-14 11:29 | Progress Note ---
Assessment and Plan Assessment and plan: #Schizophrenia -patient follows with Psychiatry outpatient -patient refusal to eat and take medications -was taking zoloft prior to last hospitalization -continue zoloft -Psychiatry consulted for evaluation, assistance appreciated #Volume depletion -secondary to anorexia -continue IVFs -patient encouraged to eat #Subsegmental pulmonary embolism without acute cor pulmonale -stable -continue eliquis #Hypertension -continue amlodipine and losartan at home doses -PRN hydralazine due to patient #Advance care planning -Disease education, care plan, diagnosis, prognosis discussed with next of kin Irish Peñaloza via phone. Family understands and acknowledges current plan. -Time: +30 minutes #Discharge planning -Patient lives in a personal prison. Her medical decision maker is Ingrid Peñaloza (Granddaughter). Plan to discharge back to personal prison once cl inically stable. History Interval history: Patient agitated overnight. This morning she is alert and oriented and has no complaints. She continues to refuse her medications and food. Hospitalist Physical - Physical exam Narrative exam: GENERAL: Well-developed well-nourished. In no acute distress. HEENT: NC @ 1 lpm NECK: Supple. CHEST/LUNGS: CTAB. HEART/CARDIOVASCULAR: RRR. No murmur, rubs or gallops appreciated. ABDOMEN: +BS. NT/ND. SKIN: Dry skin NEURO: No focal motor deficit. Patient does not follow commands. MUSCULOSKELETAL: No joint effusion EXTREMITIES: No cyanosis, clubbing or edema. PSYCH: Alert to person and place. - Constitutional Vitals: Temp Pulse Resp BP Pulse Ox 98.9 F 114 H 16 180/112 97 01/14/22 08:47 01/14/22 08:47 01/14/22 08:47 01/14/22 08:47 01/14/22 08:47 General appearance: Present: no acute distress (Is a), well-nourished, other (Patient is altered, very dry oral mucosa) HEART Score - HEART Score Troponin: Troponin T 0.012 ng/mL (0.00-0.029) 01/12/22 14:57 Results - Labs CBC & Chem 7: 01/13/22 23:11 01/13/22 23:11 Labs: Laboratory Last Values WBC 9.4 K/mm3 (4.5-11.0) 01/13/22 23:11 RBC 4.11 M/mm3 (3.65-5.03) 01/13/22 23:11 Hgb 12.8 gm/dl (10.1-14.3) 01/13/22 23:11 Hct 39.8 % (30.3-42.9) 01/13/22 23:11 MCV 97 fl (79-97) 01/13/22 23:11 MCH 31 pg (28-32) 01/13/22 23:11 MCHC 32 % (30-34) 01/13/22 23:11 RDW 14.7 % (13.2-15.2) 01/13/22 23:11 Plt Count 210 K/mm3 (140-440) 01/13/22 23:11 Lymph % (Auto) Bottle Gauger 01/12/22 14:57 Jennings % (Auto) Bottle Gauger 01/12/22 14:57 Eos % (Auto) Bottle Gauger 01/12/22 14:57 Baso % (Auto) Bottle Gauger 01/12/22 14:57 Lymph # (Auto) Bottle Gauger 01/12/22 14:57 [place] # (Auto) Bottle Gauger 01/12/22 14:57 Eos # (Auto) Bottle Gauger 01/12/22 14:57 Baso # (Auto) Bottle Gauger 01/12/22 14:57 Seg Neutrophils % Bottle Gauger 01/12/22 14:57 Seg Neutrophils # Bottle Gauger 01/12/22 14:57 PT 14.5 Sec. (12.2-14.9) 01/13/22 23:11 INR 1.02 (0.87-1.13) 01/13/22 23:11 APTT 25.8 Sec. (24.2-36.6) 01/13/22 23:11 ABG pH 7.354 pH Units (7.350-7.450) 01/12/22 20:20 ABG pCO2 40.8 mm Hg 01/12/22 20:20 ABG pO2 138.8 mm Hg (80.0-90.0) H 01/12/22 20:20 ABG HCO3 22.2 mmol/L (20.0-26.0) 01/12/22 20:20 ABG O2 Saturation 98.6 % (95.0-99.0) 01/12/22 20:20 ABG O2 Content 15.6 (0.0-44) 01/12/22 20:20 ABG Base Excess -3.1 mmol/L (-2.0-3.0) L 01/12/22 20:20 ABG Hemoglobin 11.3 gm/dl (12.0-16.0) L 01/12/22 20:20 ABG Carboxyhemoglobin 1.3 % (0.0-5.0) 01/12/22 20:20 ABG Methemoglobin 0.5 % (0.0-1.5) 01/12/22 20:20 Oxyhemoglobin 96.8 % (95.0-99.0) 01/12/22 20:20 FiO2 21 % 01/12/22 20:20 Sodium 148 mmol/L (137-145) H 01/13/22 05:08 Potassium 3.9 mmol/L (3.6-5.0) D 01/13/22 05:08 Chloride 114.2 mmol/L (98-107) H 01/13/22 05:08 Carbon Dioxide 26 mmol/L (22-30) D 01/13/22 05:08 Anion Gap 12 mmol/L 01/13/22 05:08 BUN 24 mg/dL (7-17) H 01/13/22 05:08 Creatinine 0.7 mg/dL (0.6-1.2) 01/13/22 23:11 Estimated GFR > 60 ml/min 01/13/22 23:11 BUN/Creatinine Ratio 30 % 01/13/22 05:08 Glucose 160 mg/dL (65-100) H 01/13/22 05:08 POC Glucose 95 mg/dL (70-105) 01/13/22 21:47 Calcium 8.9 mg/dL (8.4-10.2) 01/13/22 05:08 Magnesium 2.00 mg/dL (1.7-2.3) 01/12/22 14:57 Total Bilirubin 0.70 mg/dL (0.1-1.2) 01/12/22 14:57 AST 26 units/L (5-40) 01/12/22 14:57 ALT 14 units/L (7-56) 01/12/22 14:57 Alkaline Phosphatase 87 units/L (35-129) 01/12/22 14:57 Total Creatine Kinase 159 units/L (30-135) H 01/12/22 14:57 CK-MB (CK-2) 4.1 ng/mL (0.0-4.0) H 01/12/22 14:57 CK-MB (CK-2) Rel Index 2.5 (0-4) 01/12/22 14:57 Troponin T 0.012 ng/mL (0.00-0.029) 01/12/22 14:57 NT-Pro-B Natriuret Pep 274.7 pg/mL (0-900) 01/12/22 14:57 Total Protein 8.0 g/dL (6.3-8.2) 01/12/22 14:57 Albumin 4.3 g/dL (3.9-5) 01/12/22 14:57 Albumin/Globulin Ratio 1.2 % 01/12/22 14:57 Urine Color Yellow (Yellow) 01/12/22 18:54 Urine Turbidity Clear (Clear) 01/12/22 18:54 Urine pH 5.0 (5.0-7.0) 01/12/22 18:54 Ur Specific [place] 1.013 (1.003-1.030) 01/12/22 18:54 Urine Protein <15 mg/dl mg/dL (Negative) 01/12/22 18:54 Urine Glucose (UA) Neg mg/dL (Negative) 01/12/22 18:54 Urine Ketones 20 mg/dL (Negative) 01/12/22 18:54 Urine Blood Neg (Negative) 01/12/22 18:54 Urine Nitrite Neg (Negative) 01/12/22 18:54 Urine Bilirubin Neg (Negative) 01/12/22 18:54 Urine Urobilinogen < 2.0 mg/dL (<2.0) 01/12/22 18:54 Ur Leukocyte Esterase Neg (Negative) 01/12/22 18:54 Urine WBC (Auto) 1.0 /HPF (0.0-6.0) 01/12/22 18:54 Urine RBC (Auto) < 1.0 /HPF (0.0-6.0) 01/12/22 18:54 U Epithel Cells (Auto) < 1.0 /HPF (0-13.0) 01/12/22 18:54 Urine Mucus Few /HPF 01/12/22 18:54 Urine Opiates Screen Presumptive negative 01/12/22 18:54 Urine Methadone Screen Presumptive negative 01/12/22 18:54 Ur Barbiturates Screen Presumptive negative 01/12/22 18:54 Ur Phencyclidine Scrn Presumptive negative 01/12/22 18:54 Ur Amphetamines Screen Presumptive negative 01/12/22 18:54 U Benzodiazepines Scrn Presumptive negative 01/12/22 18:54 Urine Cocaine Screen Presumptive negative 01/12/22 18:54 U Marijuana (THC) Screen Presumptive negative 01/12/22 18:54 Drugs of Abuse Note Disclamer 01/12/22 18:54 Plasma/Serum Alcohol < 0.01 % (0-0.07) 01/12/22 14:57 Pleitez/IV: Voiding Method Incontinent Active Medications - Current Medications Current Medications: Generic Name Dose Route Start Last Admin Trade Name Freq PRN Reason Stop Dose Admin Acetaminophen 650 mg 01/12/22 23:46 Acetaminophen 325 Mg Tab PO Q4H PRN Pain MILD(1-3)/Fever >100.5/WNITER Amlodipine Besylate 10 mg 01/13/22 14:00 01/14/22 10:17 Amlodipine 10 Mg Tab PO Not Given QDAY TODD Apixaban 5 mg 01/13/22 22:00 01/14/22 10:17 Apixaban 5 Mg Tab PO Not Given Q12HR [facility] Protocol Atorvastatin Calcium 40 mg 01/13/22 22:00 01/13/22 22:01 Atorvastatin 40 Mg Tab PO Not Given QHS TODD Dextrose 50 ml 01/12/22 23:46 Dextrose 50% In Water (25gm) 50 Ml Syringe IV Q30MIN PRN Hypoglycemia Protocol Sodium Chloride 1,000 mls @ 125 mls/hr 01/12/22 23:45 Nacl 0.9% 1000 Ml IV DIRECT TODD Insulin Human Lispro 0 unit 01/13/22 07:30 01/14/22 10:17 Insulin Lispro 100 Unit/Ml SUB-Q Not Given ACHS [facility] Protocol Losartan Potassium 25 mg 01/13/22 14:00 01/14/22 10:17 Losartan 25 Mg Tab PO Not Given QDAY TODD Magnesium Hydroxide 30 ml 01/12/22 23:46 Magnesium Hydroxide (Mom) Oral Liqd Udc PO Q4H PRN Constipation Metoprolol Succinate 25 mg 01/13/22 14:00 01/14/22 10:17 Metoprolol Succinate Xl 25 Mg Tab PO Not Given QDAY TODD Morphine Sulfate 4 mg 01/12/22 23:46 Morphine 4 Mg/1 Ml Inj IV Q4H PRN Pain , Severe (7-10) Morphine Sulfate 2 mg 01/12/22 23:46 Morphine 2 Mg/1 Ml Inj IV Q4H PRN Pain, Moderate (4-6) Ondansetron HCl 4 mg 01/12/22 23:46 Ondansetron 4 Mg/2 Ml Inj IV Q8H PRN Nausea And Vomiting Sertraline HCl 100 mg 01/13/22 14:00 01/14/22 10:18 Sertraline 100 Mg Tab PO Not Given QDAY TODD Sodium Chloride 10 ml 01/13/22 10:00 01/14/22 10:17 Sodium Chloride 0.9% 10 Ml Flush Syringe IV Not Given BID TODD Sodium Chloride 10 ml 01/12/22 23:46 Sodium Chloride 0.9% 10 Ml Flush Syringe IV PRN PRN LINE FLUSH Nutrition/Malnutrition Assess - Dietary Evaluation Nutrition/Malnutrition Findings: Nutrition Notes Start: 01/13/22 10:53 Freq: Status: Active Protocol: Document 01/13/22 10:53 [facility] (Rec: 01/13/22 11:00 [facility] [id number]) Nutrition Notes Need for Assessment generated from: MD Order,Education Initial or Follow up Assessment Current Diagnosis Diabetes,Hypertension, Hyperlipidemia Other Pertinent Diagnosis Decreased oral intake, Dehydration, Dementia, Schizophrenia Current Diet Cardiac/Consistent CHO Labs/Tests Na 148 BUN 24 BG 160 Pertinent Medications NS at 125ml/hr Height 5 ft 3 in Weight 57.5 kg [place] Body Weight (kg) 52.27 BMI 22.4 Intake Prior to Admission Poor Weight Status Appropriate Subjective/Other Information RD consulted for diet education. Pt not appropriate for diet education. She was admitted sec to decreased oral intake and medication non- compliance; pt confused upon admission. Burn Absent Trauma Absent Minimum of two criteria No #1 Nutrition Diagnosis Predicted suboptimal energy intake Etiology advanced age, dementia As Evidenced by Signs and Symptoms pt admitted with decreased oral intake Is patient on ventilator? No Is Patient Ambulatory and/or Out of Bed Yes REE-([facility]. or-ambulatory/OOB) [ 1305.369 [id number]] Calculation Used for Recommendations [facility] Additional Notes Pro needs 1-1.2g/k-69g/ day Fluid needs 1ml/kcal Nutrition Intervention Change Diet Order: Continue current diet order as tolerated Add Supplement/Snack (indicate name/kcal Glucerna BID (vanilla/ /protein ) chocolate) Provides kCal: 440 Provides Protein (gm) 20 Goal #1 PO intake of meals plus ONS to meet at least 75% energy and pro needs Anticipated Discharge Needs: Continue ONS 1-2 times daily if PO intake remains suboptimal Follow-Up By: 01/16/22 Additional Comments F/U: intakes (meals/ONS)
--- NOTE | 2022-01-14 12:37 | Consultation ---
History of Present Illness - Reason for Consult Consult date: 01/14/22 Reason for consult: SChizophrenia/dementia - Chief Complaint Chief complaint: Decreased Oral Intake - History of Present Psychiatric Illness The patient is an 81 year female with history of Dementia and schizophrenia admitted for decreased oral intake and non compliance with medications. In my encounter with the patient she is on bilateral soft wrist restraints. The patient is confused stating " I know you, thank you." Unable to assess SI/HI/ AVHs. PAST PSYCHIATRIC HISTORY SOCIAL HISTORY ROS: MENTAL STATUS EXAMINATION Assessment and Plan (1)Dementia with behavioral disturbance (2)Schizophrenia Treatment Plan Start Zyprexa 2.5mg po BID No medications prescribed Risks, benefits and alternatives of medications discussed with the patient, questions answered and consent obtained from patient. PSYCHOTHERAPY: Supportive psychotherapy provided MEDICAL: Per primary team DELIRIUM PRECAUTIONS: Please re-orient patient frequently, keep lights on during the day, and minimize benzodiazepines and opiates as these medications could worsen patient's confusion. THEATER MANAGER: Per primary DISPOSITION: Do not recommend acute inpatient psychiatric hospitalization at this time. Will follow for medication management. Thank you for the consult. Please contact with any questions and/or concerns. Case discussed with Dr. Pike who agrees with current disposition Medications and Allergies Medications and Allergies Allergies Allergy/AdvReac Type Severity Reaction Status Date / Time No Known Drug Allergies Allergy Unknown Verified 01/12/22 14:01 strawberry AdvReac Hives Verified 01/12/22 14:01 Home Medications Medication Instructions Recorded Confirmed Last Taken Type Sertraline [Zoloft] 100 mg PO QDAY 10/07/21 01/14/22 01/03/22 History Atorvastatin [Lipitor] 40 mg PO QHS 10/10/21 01/14/22 01/03/22 History Metoprolol Xl [Metoprolol 25 mg PO QDAY 10/10/21 01/14/22 01/03/22 History SUCCINATE ER TAB] Apixaban [Eliquis] 5 mg PO Q12HR #60 tablet 10/14/21 01/14/22 01/03/22 Rx Losartan [Cozaar] 25 mg PO QDAY #30 tablet 10/14/21 01/14/22 01/03/22 Rx amLODIPine 10 mg PO QDAY #30 tablet 10/14/21 01/14/22 01/03/22 Rx Active Meds: Active Medications Acetaminophen (Acetaminophen 325 Mg Tab) 650 mg PO Q4H PRN PRN Reason: Pain MILD(1-3)/Fever >100.5/WINTER Amlodipine Besylate (Amlodipine 10 Mg Tab) 10 mg PO QDAY [facility] Last Admin: 01/14/22 10:17 Dose: Not Given Apixaban (Apixaban 5 Mg Tab) 5 mg PO Q12HR [facility]; Protocol Last Admin: 01/14/22 10:17 Dose: Not Given Atorvastatin Calcium (Atorvastatin 40 Mg Tab) 40 mg PO QHS [facility] Last Admin: 01/13/22 22:01 Dose: Not Given Dextrose (Dextrose 50% In Water (25gm) 50 Ml Syringe) 50 ml IV Q30MIN PRN; Protocol PRN Reason: Hypoglycemia Sodium Chloride (Nacl 0.9% 1000 Ml) 1,000 mls @ 125 mls/hr IV DIRECT [facility] Insulin Human Lispro (Insulin Lispro 100 Unit/Ml) 0 unit SUB-Q ACHS [facility]; Protocol Last Admin: 01/14/22 12:24 Dose: Not Given Losartan Potassium (Losartan 25 Mg Tab) 25 mg PO QDAY [facility] Last Admin: 01/14/22 10:17 Dose: Not Given Magnesium Hydroxide (Magnesium Hydroxide (Mom) Oral Liqd Udc) 30 ml PO Q4H PRN PRN Reason: Constipation Metoprolol Succinate (Metoprolol Succinate Xl 25 Mg Tab) 25 mg PO QDAY [facility] Last Admin: 01/14/22 10:17 Dose: Not Given Morphine Sulfate (Morphine 4 Mg/1 Ml Inj) 4 mg IV Q4H PRN PRN Reason: Pain , Severe (7-10) Morphine Sulfate (Morphine 2 Mg/1 Ml Inj) 2 mg IV Q4H PRN PRN Reason: Pain, Moderate (4-6) Ondansetron HCl (Ondansetron 4 Mg/2 Ml Inj) 4 mg IV Q8H PRN PRN Reason: Nausea And Vomiting Sertraline HCl (Sertraline 100 Mg Tab) 100 mg PO QDAY [facility] Last Admin: 01/14/22 10:18 Dose: Not Given Sodium Chloride (Sodium Chloride 0.9% 10 Ml Flush Syringe) 10 ml IV BID [facility] Last Admin: 01/14/22 10:17 Dose: Not Given Sodium Chloride (Sodium Chloride 0.9% 10 Ml Flush Syringe) 10 ml IV PRN PRN PRN Reason: LINE FLUSH Mental Status Exam - Vital signs Last Vital Signs Temp 98.2 F 01/14/22 11:34 Pulse 133 H 01/14/22 11:34 Resp 18 01/14/22 11:34 BP 188/110 01/14/22 11:34 Pulse Ox 97 01/14/22 11:00 Results Result Diagrams: 01/13/22 23:11 01/13/22 23:11 All other labs normal.
[2022-01-14] MEDS ORDERED: hydrALAZINE 20 MG/1 ML INJ IV PRN (14:00)
[2022-01-14] MEDS ORDERED: cloNIDine TTS 0.1 MG/24 HR PATCH TD SCH (15:00)
[2022-01-15 05:23] LABS: Hematocrit 37.8 % (30.3-42.9); Hemoglobin 12.3 gm/dl (10.1-14.3); Mean Corpuscular HGB Conc 33 % (30-34); Mean Corpuscular Volume 96 fl (79-97); Platelet Count 195 K/mm3 (140-440); Red Blood Count 3.96 M/mm3 (3.65-5.03); Red Cell Distribution Width 14.8 % (13.2-15.2)
[2022-01-15] MEDS: INSULIN LISPRO 100 UNIT/ML SUB-Q SCH ×4 (08:31→22:11)
[2022-01-15] MEDS: LOSARTAN 25 MG TAB PO SCH (09:44)
[2022-01-15] MEDS: amLODIPine 10 MG TAB PO SCH (09:44)
[2022-01-15] MEDS: APIXABAN 5 MG TAB PO SCH ×2 (09:44→22:11)
[2022-01-15] MEDS: METOPROLOL SUCCINATE XL 25 MG TAB PO SCH (09:44)
[2022-01-15] MEDS: SERTRALINE 100 MG TAB PO SCH (09:44)
--- NOTE | 2022-01-15 11:21 | Progress Note ---
Assessment and Plan Assessment and plan: #Schizophrenia -patient follows with Psychiatry outpatient -patient refusal to eat and take medications -was taking zoloft prior to last hospitalization -continue zoloft -Psychiatry consulted for evaluation, assistance appreciated #Volume depletion -secondary to anorexia -continue IVFs -patient encouraged to eat #Subsegmental pulmonary embolism without acute cor pulmonale -stable -continue eliquis #Hypertension -continue amlodipine and losartan at home doses -PRN hydralazine due to patient #Advance care planning -Disease education, care plan, diagnosis, prognosis discussed with next of kin Irish Peñaloza via phone. Family understands and acknowledges current plan. -Time: +30 minutes #Discharge planning -Patient lives in a personal intermediate. Her medical decision maker is Ingrid Peñaloza (Granddaughter). Plan to discharge back to personal intermediate once cl inically stable. History Interval history: Patient agitated overnight. Per nursing patient has started eating and has taken both nighttime and morning doses of medications. Patient is alert to place and time. She asked if she could go home and replies "thank you" to most questions. Currently denying hunger, pain and any discomfort. Hospitalist Physical - Physical exam Narrative exam: GENERAL: Well-developed well-nourished. In no acute distress. HEENT: Normocephalic, atraumatic. CHEST/LUNGS: CTAB on room air HEART/CARDIOVASCULAR: RRR. No murmur, rubs or gallops appreciated. ABDOMEN: +BS. NT/ND. SKIN: Dry skin NEURO: No focal motor deficit. Patient does not follow commands. EXTREMITIES: No cyanosis, clubbing or edema. 4point restraints. PSYCH: Alert to person and place. - Constitutional Vitals: Temp Pulse Resp BP Pulse Ox 98.2 F 82 13 155/91 97 01/15/22 07:24 01/15/22 09:44 01/15/22 07:43 01/15/22 09:44 01/15/22 07:43 General appearance: Present: no acute distress (Is a), well-nourished, other (Patient is altered, very dry oral mucosa) HEART Score - HEART Score Troponin: Troponin T 0.012 ng/mL (0.00-0.029) 01/12/22 14:57 Results - Labs CBC & Chem 7: 01/15/22 04:55 01/13/22 23:11 Labs: Laboratory Last Values WBC 8.6 K/mm3 (4.5-11.0) 01/15/22 04:55 RBC 3.96 M/mm3 (3.65-5.03) 01/15/22 04:55 Hgb 12.3 gm/dl (10.1-14.3) 01/15/22 04:55 Hct 37.8 % (30.3-42.9) 01/15/22 04:55 MCV 96 fl (79-97) 01/15/22 04:55 MCH 31 pg (28-32) 01/15/22 04:55 MCHC 33 % (30-34) 01/15/22 04:55 RDW 14.8 % (13.2-15.2) 01/15/22 04:55 Plt Count 195 K/mm3 (140-440) 01/15/22 04:55 Lymph % (Auto) Officer Lieutenant 01/12/22 14:57 Mcmullen % (Auto) Officer Lieutenant 01/12/22 14:57 Eos % (Auto) Officer Lieutenant 01/12/22 14:57 Baso % (Auto) Officer Lieutenant 01/12/22 14:57 Lymph # (Auto) Officer Lieutenant 01/12/22 14:57 Mcmullen # (Auto) Officer Lieutenant 01/12/22 14:57 Eos # (Auto) Officer Lieutenant 01/12/22 14:57 Baso # (Auto) Officer Lieutenant 01/12/22 14:57 Seg Neutrophils % Officer Lieutenant 01/12/22 14:57 Seg Neutrophils # Officer Lieutenant 01/12/22 14:57 PT 14.5 Sec. (12.2-14.9) 01/13/22 23:11 INR 1.02 (0.87-1.13) 01/13/22 23:11 APTT 25.8 Sec. (24.2-36.6) 01/13/22 23:11 ABG pH 7.354 pH Units (7.350-7.450) 01/12/22 20:20 ABG pCO2 40.8 mm Hg 01/12/22 20:20 ABG pO2 138.8 mm Hg (80.0-90.0) H 01/12/22 20:20 ABG HCO3 22.2 mmol/L (20.0-26.0) 01/12/22 20:20 ABG O2 Saturation 98.6 % (95.0-99.0) 01/12/22 20:20 ABG O2 Content 15.6 (0.0-44) 01/12/22 20:20 ABG Base Excess -3.1 mmol/L (-2.0-3.0) L 01/12/22 20:20 ABG Hemoglobin 11.3 gm/dl (12.0-16.0) L 01/12/22 20:20 ABG Carboxyhemoglobin 1.3 % (0.0-5.0) 01/12/22 20:20 ABG Methemoglobin 0.5 % (0.0-1.5) 01/12/22 20:20 Oxyhemoglobin 96.8 % (95.0-99.0) 01/12/22 20:20 FiO2 21 % 01/12/22 20:20 Sodium 148 mmol/L (137-145) H 01/13/22 05:08 Potassium 3.9 mmol/L (3.6-5.0) D 01/13/22 05:08 Chloride 114.2 mmol/L (98-107) H 01/13/22 05:08 Carbon Dioxide 26 mmol/L (22-30) D 01/13/22 05:08 Anion Gap 12 mmol/L 01/13/22 05:08 BUN 24 mg/dL (7-17) H 01/13/22 05:08 Creatinine 0.7 mg/dL (0.6-1.2) 01/13/22 23:11 Estimated GFR > 60 ml/min 01/13/22 23:11 BUN/Creatinine Ratio 30 % 01/13/22 05:08 Glucose 160 mg/dL (65-100) H 01/13/22 05:08 POC Glucose 95 mg/dL (70-105) 01/15/22 08:00 Calcium 8.9 mg/dL (8.4-10.2) 01/13/22 05:08 Magnesium 2.00 mg/dL (1.7-2.3) 01/12/22 14:57 Total Bilirubin 0.70 mg/dL (0.1-1.2) 01/12/22 14:57 AST 26 units/L (5-40) 01/12/22 14:57 ALT 14 units/L (7-56) 01/12/22 14:57 Alkaline Phosphatase 87 units/L (35-129) 01/12/22 14:57 Total Creatine Kinase 159 units/L (30-135) H 01/12/22 14:57 CK-MB (CK-2) 4.1 ng/mL (0.0-4.0) H 01/12/22 14:57 CK-MB (CK-2) Rel Index 2.5 (0-4) 01/12/22 14:57 Troponin T 0.012 ng/mL (0.00-0.029) 01/12/22 14:57 NT-Pro-B Natriuret Pep 274.7 pg/mL (0-900) 01/12/22 14:57 Total Protein 8.0 g/dL (6.3-8.2) 01/12/22 14:57 Albumin 4.3 g/dL (3.9-5) 01/12/22 14:57 Albumin/Globulin Ratio 1.2 % 01/12/22 14:57 Urine Color Yellow (Yellow) 01/12/22 18:54 Urine Turbidity Clear (Clear) 01/12/22 18:54 Urine pH 5.0 (5.0-7.0) 01/12/22 18:54 Ur Specific [place] 1.013 (1.003-1.030) 01/12/22 18:54 Urine Protein <15 mg/dl mg/dL (Negative) 01/12/22 18:54 Urine Glucose (UA) Neg mg/dL (Negative) 01/12/22 18:54 Urine Ketones 20 mg/dL (Negative) 01/12/22 18:54 Urine Blood Neg (Negative) 01/12/22 18:54 Urine Nitrite Neg (Negative) 01/12/22 18:54 Urine Bilirubin Neg (Negative) 01/12/22 18:54 Urine Urobilinogen < 2.0 mg/dL (<2.0) 01/12/22 18:54 Ur Leukocyte Esterase Neg (Negative) 01/12/22 18:54 Urine WBC (Auto) 1.0 /HPF (0.0-6.0) 01/12/22 18:54 Urine RBC (Auto) < 1.0 /HPF (0.0-6.0) 01/12/22 18:54 U Epithel Cells (Auto) < 1.0 /HPF (0-13.0) 01/12/22 18:54 Urine Mucus Few /HPF 01/12/22 18:54 Urine Opiates Screen Presumptive negative 01/12/22 18:54 Urine Methadone Screen Presumptive negative 01/12/22 18:54 Ur Barbiturates Screen Presumptive negative 01/12/22 18:54 Ur Phencyclidine Scrn Presumptive negative 01/12/22 18:54 Ur Amphetamines Screen Presumptive negative 01/12/22 18:54 U Benzodiazepines Scrn Presumptive negative 01/12/22 18:54 Urine Cocaine Screen Presumptive negative 01/12/22 18:54 U Marijuana (THC) Screen Presumptive negative 01/12/22 18:54 Drugs of Abuse Note Disclamer 01/12/22 18:54 Plasma/Serum Alcohol < 0.01 % (0-0.07) 01/12/22 14:57 Pleitez/IV: Voiding Method Incontinent Active Medications - Current Medications Current Medications: Generic Name Dose Route Start Last Admin Trade Name Freq PRN Reason Stop Dose Admin Acetaminophen 650 mg 01/12/22 23:46 Acetaminophen 325 Mg Tab PO Q4H PRN Pain MILD(1-3)/Fever >100.5/WINTER Amlodipine Besylate 10 mg 01/13/22 14:00 01/15/22 09:44 Amlodipine 10 Mg Tab PO 10 mg QDAY TODD Administration Apixaban 5 mg 01/13/22 22:00 01/15/22 09:44 Apixaban 5 Mg Tab PO 5 mg Q12HR TODD Administration Protocol Atorvastatin Calcium 40 mg 01/13/22 22:00 01/14/22 22:40 Atorvastatin 40 Mg Tab PO 40 mg QHS TODD Administration Clonidine HCl 0.1 mg 01/14/22 15:00 01/14/22 15:23 Clonidine Tts 0.1 Mg/24 Hr Patch TD 0.1 mg Sa TODD Administration Dextrose 50 ml 01/12/22 23:46 Dextrose 50% In Water (25gm) 50 Ml Syringe IV Q30MIN PRN Hypoglycemia Protocol Hydralazine HCl 10 mg 01/14/22 14:00 Hydralazine 20 Mg/1 Ml Inj IV Q4HR PRN Hypertension Sodium Chloride 1,000 mls @ 125 mls/hr 01/12/22 23:45 Nacl 0.9% 1000 Ml IV DIRECT TODD Insulin Human Lispro 0 unit 01/13/22 07:30 01/15/22 08:31 Insulin Lispro 100 Unit/Ml SUB-Q Not Given ACHS [facility] Protocol Losartan Potassium 25 mg 01/13/22 14:00 01/15/22 09:44 Losartan 25 Mg Tab PO 25 mg QDAY TODD Administration Magnesium Hydroxide 30 ml 01/12/22 23:46 Magnesium Hydroxide (Mom) Oral Liqd Udc PO Q4H PRN Constipation Metoprolol Succinate 25 mg 01/13/22 14:00 01/15/22 09:44 Metoprolol Succinate Xl 25 Mg Tab PO 25 mg QDAY TODD Administration Morphine Sulfate 4 mg 01/12/22 23:46 Morphine 4 Mg/1 Ml Inj IV Q4H PRN Pain , Severe (7-10) Morphine Sulfate 2 mg 01/12/22 23:46 Morphine 2 Mg/1 Ml Inj IV Q4H PRN Pain, Moderate (4-6) Olanzapine 2.5 mg 01/14/22 15:00 01/15/22 09:44 Olanzapine 2.5 Mg Tab PO 2.5 mg BID TODD Administration Ondansetron HCl 4 mg 01/12/22 23:46 Ondansetron 4 Mg/2 Ml Inj IV Q8H PRN Nausea And Vomiting Sertraline HCl 100 mg 01/13/22 14:00 01/15/22 09:44 Sertraline 100 Mg Tab PO 100 mg QDAY TODD Administration Sodium Chloride 10 ml 01/13/22 10:00 01/15/22 10:30 Sodium Chloride 0.9% 10 Ml Flush Syringe IV Not Given BID TODD Sodium Chloride 10 ml 01/12/22 23:46 Sodium Chloride 0.9% 10 Ml Flush Syringe IV PRN PRN LINE FLUSH Nutrition/Malnutrition Assess - Dietary Evaluation Nutrition/Malnutrition Findings: Nutrition Notes Start: 01/13/22 10:53 Freq: Status: Active Protocol: Document 01/14/22 16:20 BI (Rec: 01/14/22 16:56 BI [id number]) Nutrition Notes Initial or Follow up Reassessment Current Diagnosis Hypertension,Hyperlipidemia Other Pertinent Diagnosis Poor PO intake, Dehydration, Dementia w/Behavioral Disturbance, Schizophren Current Diet Cardiac/Consistent Carbohydrates Diet (since D ). Labs/Tests 01/13: Na 148, Cl 114.2, BUN 24, Glu 160. Pertinent Medications 01/14: Nutritionally unremarkable. Height 5 ft 3 in Weight 57.5 kg [place] Body Weight (kg) 52.27 BMI 22.4 Intake Prior to Admission Poor Weight change and time frame Pt states being unsure if loss body weight recently. Discrepancy noted with Pt's last visit (01/04/22) data: Ht 5' 6", Wt 70.307 Kg, BMI 25.0 Kg/m2. Weight Status Appropriate Subjective/Other Information RD consult for skir risk and risk of malnutrition assessments. No reports available on Pt's PO intake of meals at the time , but MD and RN reported that Pt has been refusing to any PO intake, food or medcine, and is very combative. RN note on 01/14/22 15:17:Pt continues to refuse meds and food. Combative with ADLs, attempting to kick staff. Pt reoriented with no effect. Restraints remain in use, removed and replaced q2hrs. Pt pulled out INT x2 overnight, refused new placement. MD aware. Pt was recently admitted for unspecified Chest Pain which Pt denied after admission, all test and labs were unremarkable, according to last vitit's chart. Pt is on Room Air, O2 saturation @ 97%, according to Physical Assessment History notes. Pt has missing teeth, according to Physical Assessment History notes. Pt shows no signs of concern for risk of malnutritiona t the time, according to Physical Assessment History notes. t shows no signs of concern for skin risk at the time, according to Physical Assessment History notes. Pt needs total assistance with ADL activities, not a candidate for Nutrition Education. Percent of energy/protein needs met: Prescribed Cardiac/Consistent Carbohydrates Diet provides for energy/protein needs (1, 977 Kcal/86 g) during LOS. Burn Absent Trauma Absent GI Symptoms None Food Allergy Yes Skin Integrity/Comment Assessment WNL. Current % PO Negligible Minimum of two criteria No #1 Nutrition Diagnosis Inadequate protein-energy intake Comments: Change Nutrition Diagnosis. Etiology Unspecified. As Evidenced by Signs and Symptoms Negligible PO intake of meals. Is patient on ventilator? No Is Patient Ambulatory and/or Out of Bed No REE-([facility]-confined to bed) 1212.132 Kcal/Kg value to use for calculation 23 Approximate Energy Requirements Using 1323 kcal/Kg Calculation Used for Recommendations Kcal/kg Additional Notes Protein: 1-1.2 g/Kg ABW; 58-69 g/day. Fluids: 1 ml/Kcal, or as per MD. Nutrition Intervention Change Diet Order: Continue Cardiac/Consistent Carbohydrates Diet. Add Supplement/Snack (indicate name/kcal Continue 8 fl oz Glucerna; BID /protein ) . Provides kCal: 440 Provides Protein (gm) 20 Goal #1 Compensate, through dietary supplementation, for possible poor or insufficient PO intake of meals during LOS. Goal #2 Maintain body weight within +/ -3% of admission body weight during LOS. Follow-Up By: 01/17/22 Additional Comments Continue monitoring food tolerance, %PO intake of meals , and BM.
[2022-01-15] MEDS: SODIUM CHLORIDE 0.9% 1000 ML 1,000 ML IV SCH ×2 (16:42→22:08)
[2022-01-16 05:37] LABS: Blood Urea Nitrogen 19 mg/dL (7-17); Calcium 9.1 mg/dL (8.4-10.2); Hemolysis Index 4
[2022-01-16] MEDS: SODIUM CHLORIDE 0.9% 1000 ML 1,000 ML IV SCH (06:02)
[2022-01-16 06:05] LABS: BUN/Creatinine Ratio 27
[2022-01-16] MEDS ORDERED: D5W/0.45% NACL 1,000 ML IV SCH (08:00)
[2022-01-16] MEDS: LOSARTAN 25 MG TAB PO SCH (10:12)
[2022-01-16] MEDS: APIXABAN 5 MG TAB PO SCH (10:12)
[2022-01-16] MEDS: SERTRALINE 100 MG TAB PO SCH (10:13)
[2022-01-16] MEDS: METOPROLOL SUCCINATE XL 25 MG TAB PO SCH (10:13)
[2022-01-16] MEDS: amLODIPine 10 MG TAB PO SCH (10:13)
[2022-01-16] MEDS: INSULIN LISPRO 100 UNIT/ML SUB-Q SCH ×2 (10:14→12:01)
--- NOTE | 2022-01-16 11:16 | Discharge Summary ---
Providers - Providers Date of Admission: 01/12/22 23:47 Date of discharge: 01/16/22 Attending physician: TESFAYE GARCIA MD 01/12/22 20:05 Consult to Mental Health [CONS] Urgent Reason For Exam: dementia, schizophrenia 01/12/22 23:47 Consult to Dietitian/Nutrition [CONS] Routine Physician Instructions: Reason For Exam: Reason for Consult: Diet education Primary care physician: [employer] LATHE OPERATOR Hospitalization Reason for admission: hypernatremia, volume depletion Condition: Stable Hospital course: Patient is a 81-year-old female with history of dementia, schizophrenia and hypertension who was brought to the emergency department from her personal correction due to decreased oral intake. She was found to be hypernatremic and to have hyperkalemia. IV fluids were started. Psychiatry was consulted for evaluation of the patient. Zyprexa and zoloft was started. The patient began taking her medications and her mental status improved. Pleitez was placed for urinary retention. It was removed and the patient voided on her own. Her medical decision maker made the decision for her to be discharged with hospice services. Once stable she was discharged home. Disposition: 30 STILL A PATIENT Final Discharge Diagnosis (Prints w/discharge instructions): Schizophrenia. Volume depletion. Subsegmental pulmonary embolism without acute cor pulmonale. Hypertension Time spent for discharge: 30 minutes Core Measure Documentation - Palliative Care Palliative Care/ Comfort Measures: Hospice Care - Core Measures Any of the following diagnoses?: none Exam - Physical Exam Narrative exam: GENERAL: Well-developed well-nourished. In no acute distress. HEENT: Involuntary mouth movements CHEST/LUNGS: CTAB on room air HEART/CARDIOVASCULAR: RRR. No murmur, rubs or gallops appreciated. ABDOMEN: +BS. NT/ND. SKIN: Dry skin NEURO: No focal motor deficit. Patient does not follow commands. EXTREMITIES: No cyanosis, clubbing or edema. 4point restraints. PSYCH: Alert to person and place. - Constitutional Vitals: Temp Pulse Resp BP Pulse Ox 97.5 F L 72 18 148/76 99 01/16/22 08:10 01/16/22 10:13 01/16/22 08:10 01/16/22 08:10 01/16/22 08:10 Plan Care Plan Goals: Please follow-up with your mental health provider for update in your medications. Please follow-up with your primary care provider at your earliest convenience. Follow up with: PRIMARY CARE, [Primary Care Provider] - 3-5 Days Prescriptions: Sertraline [Zoloft] 100 mg PO QDAY 30 Days #30 tab OLANzapine [ZyPREXA] 2.5 mg PO BID 30 Days #60 tablet
[2022-01-16 15:39] VITALS: BP 151/80
--- NOTE | 2022-01-17 18:25 | Electrocardiograph Report ---
[facility] Test Date: 2022-01-12 Test Time: 21:06:24 Pat Name: SUKHDEEP SHAH Department: Room: A472 1 Gender: F Lokie Engineer: SHANEKA : 1940 Requested By: PAULA CORTEZ Order Number: [id number] Reading MD: Jamia Taylor Measurements Intervals [place] Rate: 98 P: KS: QRS: 24 QRSD: 91 T: QT: 346 QTc: 443 Interpretive Statements Sinus rhythm Very poor quality ECG Compared to ECG 01/04/2022 11:17:55 No significant change Electronically Signed On 01-17-2022 18:24:40 EDT by Jamia Taylor
== END 2022-01-16 18:00 | disposition hospice, home (50) | DRG 640 ==
LOC: ED 13:51 → 4A 23:47
PROVIDERS: ADMIT Internal Medicine Geriatric Medicine; ATTEND Student in an Organized Health Care Education/Training Program
DX: E86.0 Dehydration (principal); I26.99 Other pulmonary embolism without acute cor pulmonale; N17.9 Acute kidney failure, unspecified; F03.91 Unspecified dementia, unspecified severity, with behavioral disturbance; E87.0 Hyperosmolality and hypernatremia; F20.9 Schizophrenia, unspecified; R41.82 Altered mental status, unspecified; Z91.018 Allergy to other foods; F03.90 Unspecified dementia, unspecified severity, without behavioral disturbance, psychotic disturbance, mood disturbance, and anxiety; I10 Essential (primary) hypertension; Z79.899 Other long term (current) drug therapy; E86.9 Volume depletion, unspecified; E87.5 Hyperkalemia
CPT/HCPCS: 36415; 71045; 80048; 80053; 80307; 80320; 81001; 82550; 82553; 82565; 82803; 82962; 83735; 83880; 84484; 85025; 85027; 85610; 85730; 93005; G0378; J7070; G0480; J1630; J2060; J3486; J7030